=== PATIENT | male | born 1990 ===

== ENCOUNTER 2020-08-28 19:08 | Emergency (ER) | payer OTHER ==
[2020-08-28] MEDS ORDERED: Bacitracin Oint 1 GM U/D Packet TOP ONE (19:13)
[2020-08-28] MEDS ORDERED: Lidocaine 1% 30 ML SDV INJECT ONE (19:13)
[2020-08-28] MEDS ORDERED: Amoxicillin/Clavulanate K 500-125 MG Tab PO ONE (19:40)
--- NOTE | 2020-08-28 19:59 | EDM.PDOC ---
ED HPI GENERAL MEDICAL PROBLEM - General Chief Complaint: Laceration Stated Complaint: STITCHES ON LEFT HAND Time Seen by Provider: 08/28/20 19:15 Source of Information: Reports: Patient History Limitations: Reports: No Limitations - History of Present Illness INITIAL COMMENTS - FREE TEXT/NARRATIVE: ED with c/o cut to left hand while cleaning ducks. New knife blade but hands di rty with blood from birds at time of incident. Up to date with tetnus. Left Finger-Thumb Pain Score (Numeric/FACES): 2 - Related Data Allergies Allergy/AdvReac Type Severity Reaction Status Date / Time No Known Allergies Allergy Verified 08/28/20 19:22 Home Meds: Home Meds . [No Known Home Meds] 08/28/20 [History] Past Medical History - Past Health History Medical/Surgical History: Denies Medical/Surgical History Social & Family History - Family History Family Medical History: Noncontributory - Tobacco Use Tobacco Use Status *Q: Never Tobacco User Second Hand Smoke Exposure: No - Caffeine Use Caffeine Use: Reports: Coffee - Alcohol Use Date of Last Drink: 08/27/20 - Recreational Drug Use Recreational Drug Use: No ED ROS GENERAL - Review of Systems Review Of Systems: Comprehensive ROS is negative, except as noted in HPI. ED EXAM, SKIN/RASH Exam: See Below Exam Limited By: No Limitations General Appearance: Alert, Mild Distress Eye Exam: Bilateral Eye: EOMI Ears: Normal External Exam Nose: Normal Inspection Throat/Mouth: Normal Inspection, Normal Voice Neck: Full Range of Motion Respiratory/Chest: No Respiratory Distress, Normal Breath Sounds Cardiovascular: Normal Peripheral Pulses, Regular Rate, Rhythm Extremities: Normal Inspection Neurological: Alert, Oriented Psychiatric: Normal Affect, Normal Mood Skin: Warm, Wound/Incision (1.5cm laceration base left thumb to fat pad no active bleeding) Location, Skin: Upper Extremity, Left Associated features: Tenderness ED SKIN PROCEDURES - Laceration/Wound Repair Left Hand Appearance: Superficial Distal NVT: Neuro & Vascular Intact Anesthetic Type: Local Local Anesthesia - Lidocaine (Xylocaine): 1% Plain Local Anesthetic Volume: 2cc Skin Prep: Chlorhexidine (Hibiciens), Saline Saline Irrigation (cc's): 100 Exploration/Debridement/Repair: Wound Explored Closed with: Sutures Lac/Wound length In cm: 1.5 Suture Size: 4-0 # of Sutures: 4 Suture Type: Nylon, Interrupted Course - Vital Signs Last Recorded V/S: Last Vital Signs Temp 97 F 08/28/20 19:14 Pulse 88 08/28/20 19:14 Resp 17 08/28/20 19:14 BP 136/95 H 08/28/20 19:14 Pulse Ox 97 08/28/20 19:14 - Orders/Labs/Meds Meds: Medications Discontinued Medications Generic Name Dose Route Start Last Admin Trade Name Jun PRN Reason Stop Dose Admin Amoxicillin/Clavulanate Potassium 1 tab 08/28/20 19:40 08/28/20 19:48 Augmentin 500 Mg\125 Mg PO 08/28/20 19:41 1 tab ONETIME ONE Administration Bacitracin 1 dose 08/28/20 19:13 08/28/20 19:40 Bacitracin Oint 1 Gm TOP 08/28/20 19:14 1 dose ONETIME ONE Administration Lidocaine HCl 30 ml 08/28/20 19:13 08/28/20 19:23 Xylocaine-Mpf 1% INJECT 08/28/20 19:14 30 ml ONETIME ONE Administration Departure - Departure Time of Disposition: 19:46 Disposition: Home, Self-Care 01 Condition: Good Clinical Impression: Laceration of hand Qualifiers: Encounter type: initial encounter Foreign body presence: without foreign body Laterality: left Qualified Code(s): S61.412A - Laceration without foreign body of left hand, initial encounter - Discharge Information *PRESCRIPTION DRUG MONITORING PROGRAM REVIEWED*: No *COPY OF PRESCRIPTION DRUG MONITORING REPORT IN PATIENT DELIA: No Instructions: Laceration Care, Adult, [id number] Referrals: PCP,None [Primary Care Provider] - Forms: ED Department Discharge Additional Instructions: sutures out 10-14 days keep clean and dry keep covered with dressing antibiotic ointment oe time daily wash at least twice daily with soap and water augmentin 500mg/125 one twice daily follow up if redness swelling or drainage. alternate tylenol 650mg and ibuprofen 6oomg every 4 hours as needed for discomfort Sepsis Event Note (ED) - Evaluation Sepsis Screening Result: No Definite Risk - Focused Exam Vital Signs: Vital Signs Temp Pulse Resp BP Pulse Ox 08/28/20 19:14 97 F 88 17 136/95 H 97
== END 2020-08-28 19:55 | disposition home or self-care (01) ==
LOC: DL.ED 19:08
DX: S61.412A Laceration without foreign body of left hand, initial encounter (principal); W26.0XXA Contact with knife, initial encounter
CPT/HCPCS: 12001; 99282; A9270; J2001